=== PATIENT | male | born 1995 | race Caucasian/White ===

== ENCOUNTER 2020-02-23 10:30 | Emergency (ER) | payer MEDICAID, OTHER ==
[~2020-02-23] VITALS: Ht 172.7 cm; Wt 80.0 kg
[2020-02-23] MEDS ORDERED: ACETAMINOPHEN 325MG TABLET PO ONE (12:00)
[2020-02-23] MEDS ORDERED: SODIUM CHLORIDE 0.9% 1,000 ML IV ONE ×2 (12:27→13:15)
[2020-02-23 12:42] LABS: CHLORIDE 99 mEq/L (98-107)
[2020-02-23 12:45] LABS: BASOPHILS % 0.4 % (0.0-2.0); EOSINOPHILS % 2.1 % (0.0-5.0); HEMATOCRIT. 49.3 % (42.0-52.0); HEMOGLOBIN. 16.6 g/dL (14.0-18.0); LYMPHOCYTES % 12.4 % (20.0-50.0); MEAN CORPUSCULAR HEMOGLOBIN 29.4 pg (28.0-32.0); MEAN CORPUSCULAR VOLUME 87.1 fL (80.0-94.0); MEAN PLATELET VOLUME 10.3 fl (7.4-10.4); MONOCYTES % 4.8 % (2.0-8.0); NEUTROPHILS % 80.3 % (40.0-76.0); PLATELET 240 x1000/uL (130-400); RED BLOOD CELL COUNT 5.66 mill/uL (4.7-6.1); RED CELL DISTRIBUTION WIDTH 13.6 % (11.6-14.6)
[2020-02-23 12:54] LABS: BETA HYDROXYBUTYRATE 3.7 mMol/L (0.0-0.3)
[2020-02-23] MEDS ORDERED: INSULIN REGULAR (HUMULIN R) 300UNITS/3ML SUBCUT ONE ×2 (13:15→16:00)
[2020-02-23 16:09] VITALS: BP 120/68
== END 2020-02-23 15:58 | disposition home or self-care (01) ==
LOC: ER 10:38
DX: E11.65 Type 2 diabetes mellitus with hyperglycemia (principal); E87.5 Hyperkalemia
CPT/HCPCS: 36415; 71045; 80053; 82010; 85025; 93005; 96360; 96372; 99285; J1815; J7030

== ENCOUNTER 2020-02-25 09:48 | Inpatient (IN) | payer MEDICAID, OTHER ==
[~2020-02-25] VITALS: Ht 162.6 cm; Wt 66.7 kg
[2020-02-25] MEDS: BLOOD SUGAR DIAGNOSTIC STRIP TEST SCH (09:00)
[2020-02-25] MEDS ORDERED: SODIUM CHLORIDE 0.9% 1,000 ML IV ONE ×2 (10:53→12:30)
[2020-02-25 11:33] LABS: HEMATOCRIT. 54.4 % (42.0-52.0); HEMOGLOBIN. 18.2 g/dL (14.0-18.0); MEAN CORPUSCULAR HEMOGLOBIN 29.8 pg (28.0-32.0); MEAN CORPUSCULAR VOLUME 89.2 fL (80.0-94.0); MEAN PLATELET VOLUME 9.9 fl (7.4-10.4); PLATELET 275 x1000/uL (130-400); RED CELL DISTRIBUTION WIDTH 14.2 % (11.6-14.6)
[2020-02-25 11:34] LABS: CHLORIDE 95 mEq/L (98-107)
[2020-02-25 11:38] LABS: ETHANOL BLOOD < 10 mg/dL
[2020-02-25 11:40] LABS: BETA HYDROXYBUTYRATE 7.5 mMol/L (0.0-0.3)
[2020-02-25] MEDS ORDERED: ONDANSETRON HCL 4MG/2ML INJ IV ONE (11:45)
[2020-02-25 11:51] LABS: PROTHROMBIN TIME 10.4 sec (9.6-11.0)
[2020-02-25] MEDS ORDERED: INSULIN REGULAR (DRIP) 100 UNITS in SODIUM CHLORIDE 0.9% 99 ML IV ONE ×2 (12:15→13:00)
[2020-02-25 13:15] LABS: PLATELET ESTIMATE NORMAL
[2020-02-25 14:01] LABS: CLARITY URINE CLEAR (CLEAR); KETONES URINE 3+ (NEGATIVE); LEUKOCYTE ESTERASE URINE NEGATIVE (NEGATIVE); NITRITE URINE NEGATIVE (NEGATIVE); OCCULT BLOOD URINE 3+ (NEGATIVE); PROTEIN URINE TRACE (NEGATIVE); SPECIFIC GRAVITY URINE 1.027 (1.005-1.030); UROBILINOGEN URINE 0.2 E.U./dL (0.2-1.0)
[2020-02-25 14:03] LABS: COLOR URINE PALE YELLOW (YELLOW)
[2020-02-25 14:14] LABS: *AMPHETAMINES SCREEN URINE NEGATIVE (NEGATIVE); *BARBITURATES SCREEN URINE NEGATIVE (NEGATIVE); CANNABINOID URINE SCREEN PRESUMTIVE POSITIVE (NEGATIVE); METHADONE URINE SCREEN NEGATIVE (NEGATIVE); OPIATES URINE SCREEN NEGATIVE (NEGATIVE); PHENCYCLIDINE URINE SCREEN NEGATIVE (NEGATIVE)
[2020-02-25 14:15] LABS: *BENZODIAZEPINES SCREEN URINE NEGATIVE (NEGATIVE); *COCAINE SCREEN URINE NEGATIVE (NEGATIVE)
[2020-02-25] MEDS ORDERED: ONDANSETRON HCL 4MG/2ML INJ IV PRN (15:15)
[2020-02-25] MEDS: SODIUM CHLORIDE 0.9% 1,000 ML IV SCH ×2 (15:52→16:16)
[2020-02-25] MEDS: PANTOPRAZOLE SODIUM 40 MG/VIAL IV SCH (16:15)
[2020-02-25] MEDS: ENOXAPARIN 40MG/0.4ML SYR SUBCUT SCH (16:15)
[2020-02-25] MEDS ORDERED: DEXTROSE 50% WATER 50ML SYRINGE IV PRN ×2 (20:15)
[2020-02-25] MEDS ORDERED: INSULIN REGULAR (DRIP) 100 UNITS in SODIUM CHLORIDE 0.9% 99 ML IV SCH (20:30)
[2020-02-26] MEDS: SODIUM CHLORIDE 0.9% 1,000 ML IV SCH (00:43)
[2020-02-26 01:47] LABS: CHLORIDE 108 mEq/L (98-107)
[2020-02-26 01:52] LABS: PHOSPHORUS 1.9 mg/dL (2.5-4.9)
[2020-02-26 04:50] LABS: BASOPHILS % 0.1 % (0.0-2.0); CHLORIDE 106 mEq/L (98-107); EOSINOPHILS % 0.5 % (0.0-5.0); HEMATOCRIT. 41.4 % (42.0-52.0); HEMOGLOBIN. 14.4 g/dL (14.0-18.0); LYMPHOCYTES % 10.2 % (20.0-50.0); MEAN CORPUSCULAR VOLUME 86.5 fL (80.0-94.0); MEAN PLATELET VOLUME 9.5 fl (7.4-10.4); MONOCYTES % 6.4 % (2.0-8.0); NEUTROPHILS % 82.8 % (40.0-76.0); PLATELET 223 x1000/uL (130-400); RED BLOOD CELL COUNT 4.79 mill/uL (4.7-6.1); RED CELL DISTRIBUTION WIDTH 14.1 % (11.6-14.6)
[2020-02-26 04:56] LABS: PHOSPHORUS 1.7 mg/dL (2.5-4.9)
[2020-02-26] MEDS: BLOOD SUGAR DIAGNOSTIC STRIP TEST SCH ×11 (07:30→20:40)
[2020-02-26] MEDS: PANTOPRAZOLE SODIUM 40 MG/VIAL IV SCH (09:30)
[2020-02-26 11:58] LABS: CHLORIDE 106 mEq/L (98-107)
[2020-02-26 12:03] LABS: PHOSPHORUS 1.6 mg/dL (2.5-4.9)
[2020-02-26] MEDS ORDERED: DEXT 5%/0.9% NACL 1,000 ML IV SCH (12:30)
[2020-02-26] MEDS ORDERED: POTASSIUM PHOS,M-BASIC-D-BASIC 15 MMOL in DEXT 5% WATER 245 ML IV NR (13:30)
[2020-02-26] MEDS: ENOXAPARIN 40MG/0.4ML SYR SUBCUT SCH (16:00)
[2020-02-26] MEDS ORDERED: DEXTROSE 50% WATER 50ML SYRINGE IV PRN (17:00)
[2020-02-26] MEDS: INSULIN LISPRO 100 UNITS/ML SUBCUT SCH ×3 (17:15→20:39)
[2020-02-26] MEDS ORDERED: INSULIN GLARGINE UD 100 UNITS/ML SYR SUBCUT SCH (22:00)
[2020-02-27 01:23] VITALS: BP 123/79
[2020-02-27 06:53] LABS: BASOPHILS % 0.4 % (0.0-2.0); EOSINOPHILS % 1.7 % (0.0-5.0); HEMATOCRIT. 42.5 % (42.0-52.0); HEMOGLOBIN. 14.7 g/dL (14.0-18.0); LYMPHOCYTES % 19.5 % (20.0-50.0); MEAN CORPUSCULAR HEMOGLOBIN 29.9 pg (28.0-32.0); MEAN CORPUSCULAR VOLUME 86.3 fL (80.0-94.0); MEAN PLATELET VOLUME 9.4 fl (7.4-10.4); MONOCYTES % 7.4 % (2.0-8.0); PLATELET 197 x1000/uL (130-400); RED BLOOD CELL COUNT 4.93 mill/uL (4.7-6.1); RED CELL DISTRIBUTION WIDTH 13.5 % (11.6-14.6)
[2020-02-27 07:34] LABS: CHLORIDE 103 mEq/L (98-107)
[2020-02-27] MEDS: BLOOD SUGAR DIAGNOSTIC STRIP TEST SCH ×3 (07:35→17:32)
[2020-02-27 08:00] VITALS: BP 120/67
[2020-02-27] MEDS: PANTOPRAZOLE SODIUM 40 MG/VIAL IV SCH (08:22)
[2020-02-27] MEDS: INSULIN LISPRO 100 UNITS/ML SUBCUT SCH ×6 (08:24→17:35)
[2020-02-27 12:00] VITALS: BP 129/82
[2020-02-27 16:00] VITALS: BP 121/84
[2020-02-27] MEDS: ENOXAPARIN 40MG/0.4ML SYR SUBCUT SCH (16:00)
[2020-02-27 18:17] VITALS: BP 121/84
[2020-02-27] MEDS ORDERED: INSULIN GLARGINE UD 100 UNITS/ML SYR SUBCUT SCH (22:00)
[2020-02-28] MEDS ORDERED: FAMOTIDINE 20MG/2ML VIAL IV SCH (09:00)
== END 2020-02-27 18:38 | disposition home or self-care (01) | DRG 420 ==
LOC: ER 10:09 → MICUSO 13:04 → 6EST 02-26 23:48
PROVIDERS: ADMIT Internal Medicine; ATTEND Internal Medicine
DX: E10.10 Type 1 diabetes mellitus with ketoacidosis without coma (principal); D72.829 Elevated white blood cell count, unspecified; K21.9 Gastro-esophageal reflux disease without esophagitis; R74.0 Nonspecific elevation of levels of transaminase and lactic acid dehydrogenase [LDH]; Z79.4 Long term (current) use of insulin; Z91.19 Patient's noncompliance with other medical treatment and regimen
CPT/HCPCS: 36415; 71045; 76700; 80048; 80053; 80305; 80320; 81003; 82010; 82962; 83036; 83735; 84100; 85025; 93005; 93970; 99291; C9113; J1650; J1815; J2405; J3490; J7030; J7042; J7050; J7060; G0480

== ENCOUNTER 2020-03-06 03:45 | Emergency (ER) | payer OTHER ==
[~2020-03-06] VITALS: Ht 172.7 cm; Wt 73.0 kg
[2020-03-06] MEDS ORDERED: LEVETIRACETAM 500MG PREMIX 100 ML IV ONE (04:30)
[2020-03-06 05:07] LABS: BASOPHILS % 0.6 % (0.0-2.0); EOSINOPHILS % 2.6 % (0.0-5.0); HEMATOCRIT. 47.3 % (42.0-52.0); HEMOGLOBIN. 16.2 g/dL (14.0-18.0); LYMPHOCYTES % 20.2 % (20.0-50.0); MEAN CORPUSCULAR HEMOGLOBIN 29.9 pg (28.0-32.0); MEAN CORPUSCULAR VOLUME 87.1 fL (80.0-94.0); MEAN PLATELET VOLUME 9.2 fl (7.4-10.4); MONOCYTES % 10.6 % (2.0-8.0); PLATELET 289 x1000/uL (130-400); RED BLOOD CELL COUNT 5.43 mill/uL (4.7-6.1); RED CELL DISTRIBUTION WIDTH 14.4 % (11.6-14.6)
[2020-03-06 05:13] LABS: CHLORIDE 102 mEq/L (98-107)
[2020-03-06 06:10] VITALS: BP 119/69
== END 2020-03-06 06:05 | disposition home or self-care (01) ==
LOC: ER 03:45
DX: R56.9 Unspecified convulsions (principal); E11.65 Type 2 diabetes mellitus with hyperglycemia; F12.10 Cannabis abuse, uncomplicated; F17.200 Nicotine dependence, unspecified, uncomplicated
CPT/HCPCS: 36415; 80053; 85025; 96374; 99283; J1953